=== PATIENT | male | born 1975 | race Caucasian/White ===

== ENCOUNTER → 2016-09-09 | Outpatient (CLI) | payer BC ==
[~2016-09-09] MED LIST: NO HOME MEDICATIONS; PERCOCET 5/321 UDTAB PO
== END ==
LOC: COL.RAD 07:30
DX: R20.0 Anesthesia of skin (principal)
CPT/HCPCS: A9585

== ENCOUNTER 2017-04-21 10:13 | Emergency (ER) | payer OTHER ==
[~2017-04-21] VITALS: Ht 193 cm; Wt 134.1 kg
[2017-04-21 10:17] VITALS: TEMP 97.8
[2017-04-21] MEDS ORDERED: NASONEX SPRAY17 GM NS (10:24)
[2017-04-21 10:59] LABS: BASO % 0.6 % (0.0-2.0); EOS # 0.3 (0.0-0.7); EOS % 3.9 % (0-4.0); GRAN # 3.9 (1.4-6.5); GRAN % 53.6 % (42.2-75.2); HEMATOCRIT 43.7 % (42.0-52.0); HEMOGLOBIN 14.6 g/dl (13.5-18.0); LYMPH # 2.5 (1.2-3.4); LYMPH % 34.2 % (20.0-51.0); MEAN CELL VOLUME 87 fl (80.0-100.0); MEAN CORPUSCULAR HEMOGLOBIN 29 pg (27.0-31.0); MEAN CORPUSCULAR HGB CONC 33 g/dl (33.0-37.0); MEAN PLATELET VOLUME 11.1 fl (7.4-10.4); MONO # 0.5 (0.1-0.6); MONO % 7.4 % (1.7-9.3); PLATELET COUNT 230 K/mm3 (130-400); RED BLOOD COUNT 5.01 M/mm3 (4.20-5.60); REDCELL DISTRIBUTION WIDTH-CV 12.6 % (11.5-14.5)
[2017-04-21 11:10] LABS: POTASSIUM 4.1 mmol/L (3.4-5.0)
[2017-04-21 11:11] LABS: ALANINE AMINOTRANSFERASE 64 U/L (21-72); ALBUMIN 4.8 gm/dL (3.5-5.0); ALKALINE PHOSPHATASE 77 U/L (50-136); ANION GAP 9 mmol/L (7-16); AST,SGOT 35 U/L (15-37); BILIRUBIN,TOTAL 0.8 mg/dL (0.0-1.0); BLOOD UREA NITROGEN 14 mg/dL (9-20); CALCIUM 9.5 mg/dL (8.4-10.2); CARBON DIOXIDE 26 mmol/L (22-30); CHLORIDE 103 mmol/L (98-107); GLUCOSE 98 mg/dL (74-106); SODIUM 138 mmol/L (137-145); TOTAL PROTEIN 7.8 gm/dL (6.4-8.2)
[2017-04-21 11:23] LABS: TROPONIN-I < 0.012 ng/mL (0.000-0.034)
[2017-04-21] MEDS ORDERED: NAPROSYN 2250 MG/TAB PO (13:27)
[2017-04-21] MEDS ORDERED: PROTONIX20 MG PO (13:40)
[2017-04-21 14:02] VITALS: BP 136/91; PULSE 63
== END 2017-04-21 14:10 | disposition home or self-care (01) ==
LOC: COL.ER 10:13
PROVIDERS: Emergency Medicine
DX: R07.89 Other chest pain (principal); Z87.19 Personal history of other diseases of the digestive system
CPT/HCPCS: J7030

== ENCOUNTER → 2018-12-28 | Outpatient (CLI) | payer OTHER ==
[~2018-12-28] MED LIST changes: +NAPROSYN 2250 MG/TAB PO; +NASONEX SPRAY17 GM NS; +PROTONIX20 MG PO
== END ==
LOC: COL.RAD 13:55
DX: S83.241A Other tear of medial meniscus, current injury, right knee, initial encounter (principal); M22.41 Chondromalacia patellae, right knee